=== PATIENT | male | born 1990 | race Caucasian/White ===

== ENCOUNTER 2022-12-07 07:44 | Outpatient (CLI) | payer OTHER, SELFPAY | END 2022-12-07 07:45 | disposition home or self-care (01) | LOC: NFLDREF 12-11 12:50 | PROVIDERS: PCP Family Medicine; Referring Provider Family Medicine; Visit Provider Family Medicine | DX: Z13.1 Encounter for screening for diabetes mellitus (principal); Z13.6 Encounter for screening for cardiovascular disorders | CPT/HCPCS: 80061; 82947 ==

== ENCOUNTER 2023-11-26 13:53 | Outpatient (CLI) | payer BC, SELFPAY ==
--- OUTSIDE RECORDS SUMMARY | 2023-11-26 13:57 | XMS_ITS | Clinical Summary ---
Author Organization [facility] Address [place], [place] [address] Care Team Providers Care Tabular Typist Name Role Phone Juan R Rowland MD Primary Care Provider + [phone] Allergies Active Allergy Reactions Criticality Noted Date Comments Penicillins 11/21/2009 Medications Medication Sig Dispensed Refills Start Date End Date Status ibuprofen (ADVIL; MOTRIN) 200 mg tabletIndications:Akbar k pain Take 3 tablets by mouth every 6 hours if needed. 60 tablet 0 11/21/2009 Active albuterol (PROVENTIL) 2 mg/5 mL liquid Take 5 mL by mouth 3 times daily. 1 Bottle 0 06/21/2010 Active prednisoLONE acetate 1% ophthalmic (ECONOPRED PLUS, PRED FORTE, OMNIPRED) 1 % suspension Place 1 Drop into both eyes 4 times daily. 5 mL 0 06/16/2011 Active Active Problems Problem Noted Date Diagnosed Date Groin pain 07/06/2010 Back pain 07/06/2010 Social History Tobacco Use Types Packs/Day Years Used Date Smoking Tobacco: Never Smokeless Tobacco: Never Alcohol Use Standard Drinks/Week Comments Yes 0 (1 standard drink = 0.6 oz pur e alcohol) Sex and Gender Information Value Date Recorded Sex Assigned at Not on file Gender Identity Not on file Sexual Orientation Not on file Obstetrics History Last Filed Vital Signs Vital Sign Reading Time Taken Comments Blood Pressure 122/78 06/16/2011 11:51 AM CDT Pulse 61 06/16/2011 11:51 AM CDT Temperature 36.6 ??C (97.8 ??F) 06/28/2010 3:35 PM CD T Respiratory Rate - - Oxygen Saturation - - Inhaled Oxygen Concentration - - Weight 125.6 kg (277 lb) 06/16/2011 11:51 AM CDT Height - - Body Mass Index - - Plan of Treatment Upcoming Encounters Date Type Department Care Team (Late st Contact Info) Description 11/26/2023 2:00 PM CDT Ancillary Procedure [facility] [address] [place] [address] Health Maintenance Due Date Last Done Comments Tdap 09/12/1999 Depression screening for age 12+ 2000 HIV for age 15-65 09/12/2003 BMI (ht and wt on same day) for age 18+ 2006 Hepatitis C screening for ag e 18-79 2006 Tetanus booster 2008 Lipids for age 35-44 09/12/2023 COVID-19 vaccine series (2023- season) 2023 Influenza for age 9-49 11/03/2023 Pneumococcal series for age 6-64 Aged Out No longer eligible based on patient's age to complete this topic Care Teams Tabular Typist Relationship Specialty Start Date End Date Juan R Rowland MD [address] [place] [phone] PCP - General 11/21/09
[2023-11-26] MEDS: PERFLUTREN LIPID MICROSPHERES 2 ML VIAL IV (14:30)
--- NOTE | 2023-11-26 15:00 | W.PM.STED ---
Stress Test Note Date Date Seen: 11/26/23 Date of test: 11/26/23 Providers Primary care provider: Yaakov Davidson Stress test physician: Edward Hough Stress Test Note Stress test ordered: Stress Echo Indication for test: Chest pain Stress test medicine: Definity Results discussion: Patient is a very nice 33-year-old gentleman who presents for the above test after discussion the risks benefits and side effects, he would like to proceed cardiac stress test medical history form is reviewed in detail. Pretest EKG shows normal sinus rhythm with right bundle-branch block configuration, blood pressure 1 30-182, rate is 70, some mild ST wave changes are noted laterally inferiorly with ST wave flattening noted. Standard Fred protocol is employed over a time course of 10 minutes, test is terminated because of fatigue he achieved a metabolic equivalent of 11.5 Mets her maximum heart rate of 184. Which is 117% of the maximum. No other complaints suggestive of ischemia, and subjectively negative, review of the tracing so no significant ST wave changes. There were no dysrhythmias noted. Impression: Negative electrographic portion of stress echo, subjectively negative Follow up suggested: Await echo images, these will be reviewed by Cardiology clinical correlation with these will be needed, patient recovered normally left this testing facility in excellent condition there were no complications.
[2023-11-26 15:15] VITALS: BP 156/78; PULSE 108; RESP 18
== END 2023-11-26 13:54 | disposition home or self-care (01) ==
LOC: STRESS 13:53
PROVIDERS: PCP Family Medicine; Visit Provider Family Medicine
DX: R07.9 Chest pain, unspecified (principal); R06.09 Other forms of dyspnea
CPT/HCPCS: 93016; 93325; 93351; Q9957

== ENCOUNTER 2023-12-25 08:24 | Outpatient (CLI) | payer BC, SELFPAY ==
--- OUTSIDE RECORDS SUMMARY | 2023-12-26 08:44 | XMS_ITS | Clinical Summary ---
Author Organization [facility] Address [place], [place] [address] Care Team Providers Care Fur Farmer Name Role Phone Juan R Rowland MD Primary Care Provider + [phone] Allergies Active Allergy Reactions Criticality Noted Date [...] Date Groin pain 07/06/2010 Back pain 07/06/2010 Encounters Date Type Department Care Team Description 11/26/2023 2:00 PM CDT Ancillary Procedure [facility] [address] [place] [address] from Last 3 Months Social History Tobacco Use Types Packs/Day Years [...] Mass Index - - Plan of Treatment Health Maintenance Due Date Last Done Comments [...] on patient's age to complete this topic Procedures Procedure Name Priority Date/Time Associated Diagnosis Comments ECHO STRESS EXRCSE W CNTRST W COLOR W LTD DOPPLER Routine 11/26/2023 2:51 PM CDT Chest pain from Last 3 Months Results * ECHO STRESS EXRCSE W CNTRST W COLOR W LTD DOPPLER (11/26/2023 2:51 PM CDT) LVEDD 6.1 cm EJECTION FRACTION 55 - 60% Anatomical Region Laterality Modality Ultrasound 11/26/2023 2:10 PM CDT Narrative 11/26/2023 3:44 PM CDT STRESS ECHOCARDIOGRAM JOSEPH Mao CALVO ? Accession#: ?? [id number] : ?1990 33 years Study Date: ?? 11/26/2023 2:10:43 PM Gender: M ?BP: ? 132/82 mmHg Height: 183.00 cm ?BSA: ?2.46 m? ? ? Weight: 127.00 kg ?Tech: ? MBF ? Referring MD: YAAKOV DAVIDSON Site: ? [facility] Reading Location: Mobile OP Patient Location: Outpatient. Procedure: Stress Echo, Contrast, Limited 2D , Color Doppler and Limited Spectral Doppler. Fred stress echo. Indication for study: Chest pain Cardiac Rhythm: Regular.Study quality: Technically limited. Imaging limitations: This study was subject to imaging limitations due to body habitus. Final Impressions: 1. Negative stress echo for ischemia. 2. Grossly normal rest screening echo. 3. See separate report for EKG interpretation. 4. During stress exam the patient developed chest pain. 5. Maximum stress test with 99.6% of age predicted maximum heart rate achieved. 6. Echo contrast was administered to enhance visualization of all left ventricular segments. 7. Post stress, normal left ventricular size, normal global systolic function with an estimated EF of 70 to 75%. Stress Data: ? HR ?Systolic Diastolic Time Duration Minutes Seconds Baseline 62 bpm ?132 ?82 mmHg ? 10 :0 ?Peak ? 184 bpm ?? 168 ?90 mmHg Max Pred HR ?185 % of Max ? 100% Double Product [id number] Echo Findings:This is a negative stress echo test for ischemia. Post stress, normal left ventricular size, normal global systolic function with an estimated EF of 70 to 75%. LV regional wall motion abnormalities are not present post exercise. EKG:See separate report for EKG interpretation. Exam Protocol:The patient presents with no significant symptoms at baseline. The patient exercised 10 min 0 sec to stage IV according to the Fred stress echo protocol. Test terminated due to fatigue. 13.5 METS were achieved. The patient achieved a heart rate of 184 bpm which is 99.6% of maximum predicted heart rate. Maximum systolic blood pressure was 168 [place] [address]. Maximum stress test with 99.6% of age predicted maximum heart rate achieved. The blood pressure response was normal. The patient developed chest pain during the stress exam. Symptoms resolved with rest. Symptoms resolved in 5-10 minutes. Low (less than 1% annual mortality rate) non invasive risk stratification. Chamber Sizes and Function Normal left ventricular size, normal global systolic function with an estimated EF of 55 - 60%. LV regional wall motion abnormalities are not present. Right ventricular cavity size is normal, global systolic RV function is normal. RV wall thickness is normal. Valves, RV Pressures and Diastolic Function The aortic valve is normal in structure and trileaflet, no stenosis and no regurgitation. The mitral valve is normal in structure, no mitral regurgitation. The tricuspid valve is normal in structure. Tricuspid regurgitation is not evident. MEASUREMENTS AND CALCULATIONS 2-D Measurements and LV Function: LVID (d) 6.0 cm LV FS% (2D) 29 % LVID (s) 4.3 cm HR ?62 bpm IVS (d) ??1.2 cm LVPW (d) 1.2 cm Asc Ao ?? 3.2 cm Contrast documentation: 5 ml diluted Definity, lot #[id number], [facility]# [id number] was administered peripherally to enhance visualization of all left ventricular segments. . This study was interpreted by an [facility] accredited facility. CC: [facility] ([facility]) [facility]. ??Final ?? Procedure Note Fabian Bartlett MD - 11/26/2023 STRESS ECHOCARDIOGRAM JOSEPH CALVO : 1990 33 years Study Date: 11/26/2023 2:10:43 PM Gender: M BP: 132/82 mmHg Height: 183.00 cm BSA: 2.46 m? ? ? Weight: 127.00 kg Tech: [facility] Referring MD: YAAKOV DAVIDSON Site: [facility] Reading Location: Mobile OP Patient Location: Outpatient. Procedure: Stress Echo, Contrast, Limited 2D , Color Doppler and LimitedSpectral Doppler. Fred stress echo. Indication for study: Chest pain Cardiac Rhythm: Regular.Study quality: Technically limited. Imaging limitations: This study was subject to imaging limitations due tobody habitus. Final Impressions: 1. Negative stress echo for ischemia. 2. Grossly normal rest screening echo. 3. See separate report for EKG interpretation. 4. During stress exam the patient developed chest pain. 5. Maximum stress test with 99.6% of age predicted maximum heart rateachieved. 6. Echo contrast was administered to enhance visualization of all leftventricular segments. 7. Post stress, normal left ventricular size, normal global systolicfunction with an estimated EF of 70 to 75%. Stress Data: HR Systolic Diastolic Time Duration Minutes Seconds Baseline 62 bpm 132 82 mmHg 10 :0 Peak 184 bpm 168 90 mmHg Max Pred HR 185 % of Max 100% Double Product [id number] Echo Findings:This is a negative stress echo test for ischemia. Poststress, normal left ventricular size, normal global systolic function withan estimated EF of 70 to 75%. LV regional wall motion abnormalities arenot present post exercise. EKG:See separate report for EKG interpretation. Exam Protocol:The patient presents with no significant symptoms atbaseline. The patient exercised 10 min 0 sec to stage IV according to [facility] stress echo protocol. Test terminated due to fatigue. 13.5 METS wereachieved. The patient achieved a heart rate of 184 bpm which is 99.6% ofmaximum predicted heart rate. Maximum systolic blood pressure was 168 [place] [address]. Maximum stress test with 99.6% ofage predicted maximum heart rate achieved. The blood pressure response wasnormal. The patient developed chest pain during the stress exam. Symptomsresolved with rest. Symptoms resolved in 5-10 minutes. Low (less than 1%annual mortality rate) non invasive risk stratification. Chamber Sizes and Function Normal left ventricular size, normal global systolic function with anestimated EF of 55 - 60%. LV regional wall motion abnormalities are notpresent. Right ventricular cavity size is normal, global systolic RVfunction is normal. RV wall thickness is normal. Valves, RV Pressures and Diastolic Function The aortic valve is normal in structure and trileaflet, no stenosis and noregurgitation. The mitral valve is normal in structure, no mitralregurgitation. The tricuspid valve is normal in structure. Tricuspidregurgitation is not evident. MEASUREMENTS AND CALCULATIONS 2-D Measurements and LV Function: LVID (d) 6.0 cm LV FS% (2D) 29 % LVID (s) 4.3 cm HR 62 bpm IVS (d) 1.2 cm LVPW (d) 1.2 cm Asc Ao 3.2 cm Contrast documentation: 5 ml diluted Definity, lot #[id number], [facility]#[id number] was administered peripherally to enhance visualization of allleft ventricular segments. . This study was interpreted by an [facility] accredited facility. CC: [facility] (med records) [facility]. Final Yaakov Davidson MD ECHO ORD from Last 3 Months Care Teams Fur Farmer Relationship Specialty Start Date End Date Juan R Rowland MD [address] [place] [phone] PCP - General 11/21/09
== END 2023-12-25 08:25 | disposition home or self-care (01) ==
LOC: NFLDREF 12-26 08:42
PROVIDERS: PCP Family Medicine; Referring Provider Family Medicine; Visit Provider Family Medicine
DX: Z13.220 Encounter for screening for lipoid disorders (principal); Z13.1 Encounter for screening for diabetes mellitus
CPT/HCPCS: 80061; 82947

== ENCOUNTER 2024-02-03 07:46 | Outpatient (CLI) | payer BC, SELFPAY ==
--- OUTSIDE RECORDS SUMMARY | 2024-02-03 07:48 | XMS_ITS | Clinical Summary ---
Author Organization [facility] Address [place], [place] [address] Care Team Providers Care Manager Utilization Review Name Role Phone Juan R Rowland MD Primary Care Provider + [phone] Allergies Active Allergy Reactions Criticality Noted Date [...] Description 11/26/2023 2:00 PM CDT Ancillary Procedure [facility] [address] [place] [address] from Last 3 Months Social History Tobacco [...] 61 06/16/2011 11:51 AM CDT Temperature 36.6 C (97.8 F) 06/28/2010 3:35 PM CDT Respiratory Rate - - Oxygen Saturation - [...] 11/26/2023 3:44 PM CDT STRESS ECHOCARDIOGRAM JOSEPH CALVO : 1990 33 years Study Date: 11/26/2023 2:10:43 PM Gender: M BP: 132/82 mmHg Height: 183.00 cm BSA: 2.46 m Weight: 127.00 kg Tech: ANDRIY Referring MD: YAAKOV DAVIDSON Site: [facility] Reading Location: Mobile OP Patient [...] 185 % of Max 100% Double Product [id number] Echo Findings:This is a negative stress echo [...] [place] [address]. Maximum stress test with 99.6% of age [...] documentation: 5 ml diluted Definity, lot #[id number], [facility]# [id number] was administered peripherally to enhance visualization of all left ventricular segments. . This study was interpreted by an [facility] accredited facility. CC: [facility] (med records) [facility]. Final Procedure Note Fabian Bartlett MD - 11/26/2023 STRESS ECHOCARDIOGRAM JOSEPH CALVO : 1990 33 years Study Date: 11/26/2023 2:10:43 PM Gender: M BP: 132/82 mmHg Height: 183.00 cm BSA: 2.46 m Weight: 127.00 kg Tech: [facility] Referring MD: YAAKOV DAVIDSON Site: [facility] Reading Location: Mobile OP Patient [...] 185 % of Max 100% Double Product [id number] Echo Findings:This is a negative stress echo test for ischemia. Poststress, normal left ventricular size, normal global systolic function withan estimated EF of 70 to 75%. LV regional wall motion abnormalities arenot present post exercise. EKG:See separate report for EKG interpretation. Exam Protocol:The patient presents with no significant symptoms atbaseline. The patient exercised 10 min 0 sec to stage IV according to [facility] stress echo protocol. Test terminated due to fatigue. 13.5 METS wereachieved. The patient achieved a heart rate of 184 bpm which is 99.6% ofmaximum predicted heart rate. Maximum systolic blood pressure was 168 mmHgwhich [place] [address]. Maximum stress test with 99.6% ofage predicted [...] documentation: 5 ml diluted Definity, lot #[id number], [facility]#[id number] was administered peripherally to enhance visualization of allleft ventricular segments. . This study was interpreted by an [facility] accredited facility. CC: [facility] (med records) [facility]. Final Yaakov Davidson MD ECHO ORD from Last 3 Months Care Teams Manager Utilization Review Relationship Specialty Start Date End Date Juan R Rowland MD [facility] [place] [phone] PCP - General 11/21/09
--- NOTE | 2024-02-03 09:04 | W.ANESCHARGE ---
Anesthesia Charges Start Date/Time Anesthesia Start Date: 02/03/24 Anesthesia Start Time: 08:35 Stop Date/Time Anesthesia Stop Date: 02/03/24 Anesthesia Stop Time: 09:03
--- NOTE | 2024-02-03 09:37 | W.ANESCHARGE ---
Anesthesia Charges Start Date/Time Anesthesia Start Date: 02/03/24 Anesthesia Start Time: 08:35 Stop Date/Time Anesthesia Stop Date: 02/03/24 Anesthesia Stop Time: 09:03
== END 2024-02-03 07:47 | disposition home or self-care (01) ==
LOC: OP CLINIC 07:47
PROVIDERS: PCP Family Medicine; Visit Provider Internal Medicine
DX: Z12.11 Encounter for screening for malignant neoplasm of colon (principal); D12.5 Benign neoplasm of sigmoid colon; Z86.0100 Personal history of colon polyps, unspecified
CPT/HCPCS: 00811; 45380; 45385; 88305; J2704

== ENCOUNTER 2024-06-26 07:40 | Outpatient (CLI) | payer BC, SELFPAY | END 2024-06-26 07:41 | disposition home or self-care (01) | LOC: NFLDREF 06-29 03:59 | PROVIDERS: PCP Family Medicine; Referring Provider Family Medicine; Visit Provider Family Medicine | DX: E78.5 Hyperlipidemia, unspecified (principal) | CPT/HCPCS: 80061 ==

== ENCOUNTER 2025-01-01 07:45 | Outpatient (CLI) | payer BC, SELFPAY | END 2025-01-01 07:46 | disposition home or self-care (01) | LOC: NFLDREF 19:16 | PROVIDERS: PCP Family Medicine; Referring Provider Family Medicine; Visit Provider Family Medicine | DX: E78.5 Hyperlipidemia, unspecified (principal); Z13.1 Encounter for screening for diabetes mellitus | CPT/HCPCS: 80061; 82947 ==